=== PATIENT | female | born 1980 | race Caucasian/White ===

== ENCOUNTER 2017-01-12 21:35 | Emergency (ER) | payer OTHER ==
[~2017-01-12] VITALS: Ht 172.7 cm; Wt 89.0 kg
[2017-01-12 22:30] VITALS: BP 151/79
== END 2017-01-12 22:58 | disposition home or self-care (01) ==
LOC: ER 22:31
DX: O26.892 Other specified pregnancy related conditions, second trimester (principal); R03.0 Elevated blood-pressure reading, without diagnosis of hypertension; Z3A.18 18 weeks gestation of pregnancy; O09.522 Supervision of elderly multigravida, second trimester; Z98.890 Other specified postprocedural states
CPT/HCPCS: 99281

== ENCOUNTER 2019-02-07 07:33 | Emergency (ER) | payer SELFPAY ==
[~2019-02-07] VITALS: Ht 172.7 cm; Wt 89.7 kg
[~2019-02-07 07:33] MED LIST: IRON1CAP21 PO
[2019-02-07] MEDS ORDERED: VALACYCLOVIR HCL 500MG TABLET PO ONE (10:15)
[2019-02-07] MEDS ORDERED: PREDNISONE 20MG TABLET PO ONE (10:15)
[2019-02-07 11:43] VITALS: BP 150/70
== END 2019-02-07 11:45 | disposition home or self-care (01) ==
LOC: ER 07:33
DX: G51.0 Bell's palsy (principal); Z90.89 Acquired absence of other organs; Z98.890 Other specified postprocedural states
CPT/HCPCS: 81025; 82962; 99283; J7512